=== PATIENT | male | born 1955 | race Caucasian/White ===

== ENCOUNTER 2016-12-11 16:21 | Emergency (ER) | payer OTHER ==
[~2016-12-11] VITALS: Ht 180.3 cm; Wt 86.1 kg
[~2016-12-11 16:21] MED LIST: AMARYL1 MG PO; B-COMPLEX-VITA1 EACH PO; CARDURA1 M1 PO; FISH OIL + D31 EACH PO; GLUCOSAMINE &1 EAC1 PO; METFORMIN HCL500 M1 PO; MOTRIN600 MG PO; MULTI-VITAMIN1 EAC4 PO; PANTOPRAZOLE SO20 MG PO; PERCOCET 5/31 TABLET PO; PRAVASTATIN SOD40 MG PO; RAPAFLO8 MG PO
[2016-12-11] MEDS ORDERED: ANUSOL-HC21 GM PR (18:06)
[2016-12-11 18:21] VITALS: BP 140/73
== END 2016-12-11 18:23 | disposition home or self-care (01) ==
LOC: EME 16:21
DX: K64.4 Residual hemorrhoidal skin tags (principal); E11.9 Type 2 diabetes mellitus without complications; E78.5 Hyperlipidemia, unspecified; K21.9 Gastro-esophageal reflux disease without esophagitis
CPT/HCPCS: 99281; 99283